=== PATIENT | female | born 1950 | race Caucasian/White ===

== ENCOUNTER 2018-01-18 18:26 | Emergency (ER) | payer MEDICARE, OTHER ==
[~2018-01-18] VITALS: Ht 157.5 cm; Wt 92.5 kg
[2018-01-18] MEDS ORDERED: HYDROcodone-ACET 10/325MG TAB PO ONE (21:30)
[2018-01-18 21:39] VITALS: BP 155/81
== END 2018-01-19 00:47 | disposition home or self-care (01) ==
LOC: ER 18:26
DX: S52.91XA Unspecified fracture of right forearm, initial encounter for closed fracture (principal); S52.601A Unspecified fracture of lower end of right ulna, initial encounter for closed fracture; W19.XXXA Unspecified fall, initial encounter; Y93.89 Activity, other specified; Y99.8 Other external cause status; Y92.89 Other specified places as the place of occurrence of the external cause
CPT/HCPCS: 73110; 73130

== ENCOUNTER 2023-12-30 21:31 | Inpatient (IN) | payer MEDICARE, OTHER ==
[~2023-12-30] VITALS: Ht 160 cm; Wt 81.7 kg
[2023-12-30 22:10] VITALS: PULSE 80; RESP 16; O2SAT 96
[2023-12-30 22:31] LABS: Basophils # (auto) 0 10 ^3/uL (0-0.2); Basophils % (auto) 0.3 % (0.0-2.0); Eosinophils # (auto) 0.1 10 ^3/uL (0-0.8); Hematocrit 40.2 % (36.0-46.0); Hemoglobin 13.3 g/dL (12.2-16.2); Lymphocytes # (auto) 2.7 10 ^3/uL (0.4-5.4); Lymphocytes % (auto) 21.6 % (10.0-50.0); Mean Corpuscular Hemoglobin 31.3 pg (28.0-32.0); Monocytes # (auto) 0.6 10 ^3/uL (0-1.3); Monocytes % (auto) 5.1 % (0.0-12.0); Neutrophils # (auto) 9.1 10 ^3/uL (1.6-8.6); Red Blood Cells 4.23 10^6/uL (4.0-5.20); Red Cell Distribution Width 13.2 % (11.8-14.3); White Blood Cell 12.7 10^3/uL (4.4-10.8)
[2023-12-30 22:46] LABS: Alanine Aminotransferase 27 U/L (7-40); Albumin 4.1 g/dL (3.2-4.8); Alkaline Phosphatase 99 U/L (46-116); Anion Gap 7 (5-15); Aspartate Aminotransferase 19 U/L (13-40); BUN/Creatinine Ratio 15.2 (10.0-20.0); Blood Urea Nitrogen 10 mg/dL (9-23); Calcium 8.8 mg/dL (8.5-10.1); Carbon Dioxide 25 mmol/L (20-30); Chloride 109 mmol/L (98-107); Glucose 155 mg/dL (74-106); Potassium 3.8 mmol/L (3.5-5.1); Sodium 141 mmol/L (136-145)
[2023-12-30 22:47] LABS: Bilirubin, Total 0.5 mg/dL (0.2-1.0); INR 1.09 (0.9-1.15); Partial Thromboplastin Time 24.1 SEC (24.5-34.5); Prothrombin Time 11.4 sec (9.3-11.8); Total Protein 6.3 g/dL (5.7-8.2)
[2023-12-30 23:31] LABS: Blood Alcohol < 3.0 mg/dL (<10)
[2023-12-31] MEDS ORDERED: ONDANSETRON HCL 4 MG/2 ML VIAL IV PRN (00:30)
[2023-12-31] MEDS ORDERED: NITROGLYCERIN 0.4 MG SL TAB SL PRN (00:30)
[2023-12-31] MEDS ORDERED: ACETAMINOPHEN 325 MG TAB PO PRN (00:30)
[2023-12-31] MEDS ORDERED: MORPHINE SULFATE INJ 2 MG/ml SYRG IV PRN (00:30)
[2023-12-31 06:22] LABS: Urine Bacteria NONE SEEN /hpf (None Seen); Urine Blood Negative /uL (Negative); Urine Clarity Clear (Clear); Urine Color Colorless (Yellow); Urine Protein, UAD Negative (Negative); Urine Specific Gravity 1.011 (1.001-1.035); Urine Urobilinogen Normal (Negative); Urine WBC 1 /hpf (0 - 5)
[2023-12-31 06:41] LABS: Amphetamine Screen, Urine Neg (NEGATIVE); Barbiturate Scree,Urine Neg (NEGATIVE); Benzodiazephine Screen, Urine Neg (NEGATIVE); Cocaine Screen, Urine Neg (NEGATIVE); Opiate Scree,Urine Neg (NEGATIVE); Phencyclidine Screen, Urine Neg (NEGATIVE)
[2023-12-31 06:42] LABS: Cannabinoid Screen, Urine Neg (NEGATIVE)
[2023-12-31 07:50] VITALS: PULSE 79; RESP 18; O2SAT 93
[2023-12-31 10:34] LABS: Basophils # (auto) 0 10 ^3/uL (0-0.2); Basophils % (auto) 0.2 % (0.0-2.0); Eosinophils # (auto) 0 10 ^3/uL (0-0.8); Eosinophils % (auto) 0.7 % (0.0-7.0); Hematocrit 39.5 % (36.0-46.0); Hemoglobin 13.1 g/dL (12.2-16.2); Lymphocytes # (auto) 2.7 10 ^3/uL (0.4-5.4); Mean Corpuscular Hemoglobin 31.5 pg (28.0-32.0); Mean Corpuscular Hgb Conc. 33.1 g/dL (32.0-36.0); Mean Corpuscular Volume 95.2 fL (80.0-100.0); Monocytes # (auto) 0.4 10 ^3/uL (0-1.3); Monocytes % (auto) 6.1 % (0.0-12.0); Neutrophils # (auto) 3.2 10 ^3/uL (1.6-8.6); Red Blood Cells 4.15 10^6/uL (4.0-5.20); Red Cell Distribution Width 13.1 % (11.8-14.3); White Blood Cell 6.3 10^3/uL (4.4-10.8)
[2023-12-31 10:37] LABS: Alanine Aminotransferase 25 U/L (7-40); Alkaline Phosphatase 91 U/L (46-116); Anion Gap 6 (5-15); Aspartate Aminotransferase 20 U/L (13-40); BUN/Creatinine Ratio 14.8 (10.0-20.0); Blood Urea Nitrogen 8 mg/dL (9-23); Calcium 8.8 mg/dL (8.5-10.1); Carbon Dioxide 27 mmol/L (20-30); Chloride 110 mmol/L (98-107); Cholesterol 125 mg/dL (< 200); Glucose 160 mg/dL (74-106); HDL Cholesterol 42 mg/dL (40-59); LDL Cholesterol 68 mg/dL (< 100); Potassium 3.8 mmol/L (3.5-5.1); Sodium 143 mmol/L (136-145); Triglycerides 94 mg/dL (< 150)
[2023-12-31 10:38] LABS: Bilirubin, Total 0.5 mg/dL (0.2-1.0); Phosphorus 3.2 mg/dL (2.4-5.1)
[2023-12-31 11:47] LABS: Magnesium 1.9 mg/dL (1.6-2.6)
[2023-12-31 15:35] VITALS: BP 147/66; PULSE 85; RESP 17; TEMP 97.6; O2SAT 94
[2023-12-31 16:30] VITALS: BP 154/68; PULSE 77; RESP 22; TEMP 98; O2SAT 92
== END 2023-12-31 16:38 | disposition home or self-care (01) | DRG 312 ==
LOC: EDUNIT# 21:31 → ER 21:31 → EDBD 21:31 → TELE 12-31 00:21
PROVIDERS: ADMIT Nurse Practitioner; ATTEND Family Medicine
DX: I95.1 Orthostatic hypotension (principal); R55 Syncope and collapse; E78.5 Hyperlipidemia, unspecified; E78.00 Pure hypercholesterolemia, unspecified; D72.829 Elevated white blood cell count, unspecified; Z68.31 Body mass index [BMI] 31.0-31.9, adult; E66.01 Morbid (severe) obesity due to excess calories
CPT/HCPCS: 36415; 70450; 71045; 80053; 80061; 80307; 80320; 81001; 82306; 82607; 83036; 83605; 83735; 84100; 84443; 84484; 85025; 85379; 85610; 85730; 87040; 93005; 93306; 93886; G0378